=== PATIENT | male | born 1965 | race Caucasian/White ===

== ENCOUNTER 2020-03-15 10:18 | Outpatient (REF) | payer BC, SELFPAY ==
[2020-03-15 18:41] LABS: HCT 48.3 % (40.0-50.0); HGB 15.8 g/dL (13.5-17.5); MCH 30.7 pg (27.0-33.0); MCHC 32.7 % (32.0-36.0); MPV 10.6 fL (8.0-11.0); Platelet Count 249 10^3/uL (130-400); RBC 5.14 10^6/uL (4.36-5.78); RDW 12.2 % (11.8-14.1); RDW-SD 42.5 fL; WBC 6.67 10^3/uL (4.4-10.8)
[2020-03-15 19:04] LABS: ALT 53 U/L (16-63); AST 27 U/L (15-37); Albumin 4.2 g/dL (3.4-5.0); Alkaline Phosphatase 82 U/L (46-116); Anion Gap 5.2 mmol/L (3-11); BUN 22 mg/dL (7-18); Bilirubin, Total 0.4 mg/dL (0.2-1.0); CO2 28.8 mmol/L (21.0-32.0); CREATININE 1.11 mg/dL (0.70-1.30); Calcium 9.2 mg/dL (8.5-10.1); Chloride 103 mmol/L (98-107); Cholesterol 289 mg/dL (<200); Glucose 99 mg/dL (74-106); HDL Cholesterol 30 mg/dL (40-60); Potassium 4.7 mmol/L (3.5-5.1); Sodium 137 mmol/L (136-145); TSH (W/Ref FT4) 1.72 uIU/mL (0.36-3.74); Total Protein 7.1 g/dL (6.4-8.2); Triglyceride 767 mg/dL (<150)
[2020-03-15 19:18] LABS: LDL CHOLESTEROL 137 mg/dL (<100)
[2020-03-19 11:38] LABS: HIV-1/2 Ag & Ab Screen Negative (Negative)
[2020-03-19 12:31] LABS: Hepatitis C Ab w Rflx HCV PCR Negative (Negative)
== END 2020-03-15 10:38 ==
LOC: NCHCN 10:18
PROVIDERS: Visit Provider Family Medicine
DX: R63.5 Abnormal weight gain (principal); F10.10 Alcohol abuse, uncomplicated; E78.5 Hyperlipidemia, unspecified; E66.9 Obesity, unspecified; Z11.4 Encounter for screening for human immunodeficiency virus [HIV]; Z11.59 Encounter for screening for other viral diseases
CPT/HCPCS: 80053; 80061; 83721; 85027; 86803; 87389; 83036; 84443

== ENCOUNTER 2020-05-29 07:32 | Outpatient (CLI) | payer BC, SELFPAY ==
[2020-05-30 12:23] LABS: SARS-CoV-2 RNA Not Detected (NotDetected); SARS-CoV-2 RNA Source Nasal/Nares
== END 2020-05-29 07:52 ==
PROVIDERS: PCP Family Medicine; Visit Provider Surgery
DX: Z11.59 Encounter for screening for other viral diseases (principal); Z01.818 Encounter for other preprocedural examination
CPT/HCPCS: U0003

== ENCOUNTER 2020-06-01 07:40 | Day surgery (SDC) | payer BC, SELFPAY ==
[2020-06-01 07:34] VITALS: BP 128/76; PULSE 71; RESP 18; TEMP 35.9; O2SAT 96
[2020-06-01] MEDS: Lactated Ringers 1,000 ML 80 ML IV (08:08)
--- NOTE | 2020-06-01 08:21 | W.PM.DSUDISC ---
Discharge Plan Disposition Patient Disposition: HOME Condition: Good Discharge Details Reason For Visit: Colonoscopy Attending Provider: Maty He Primary Care Provider: Deanna Hernandez Home Meds and New Rx's Prescriptions: Continued naltrexone 50 mg tablet 50 mg PO DAILY RF: 0 hydroxyzine HCl 10 mg tablet 10 mg PO TID PRNRF: 0 Chantix 1 mg tablet 1 mg PO BID RF: 0 escitalopram oxalate 10 mg tablet 10 mg PO DAILY RF: 0 Discharge Instructions Additional Instructions: Findings: Three small polyps were removed. My office will contact you with biopsy results. Follow up: A follow up colonoscopy may be needed in 3-5 years depending on biopsy results. Please call if you develop: fevers >101.5 Nausea or Vomiting Abdominal pain that is not transient DAY SURGERY UNIT POST COLONOSCOPY INSTRUCTIONS 1. Because there will be medication in your system for the next 24 hours, you may feel a little sleepy. Your coordination will be affected. Therefore: a. Do not drive or operate dangerous equipment for 24 hours. b. Do not drink alcohol beverages for 24 hours (not even beer). c. Plan to go home and rest for the day. 2. Generally there are no restrictions on your activity after a day or so has gone by, but you may feel a bit fatigued for a few days. 3 After you arrive home you may have a light meal and return to a normal diet as you can tolerate it without feeling sick to your stomach. 4. After surgery, you may feel pain or discomfort. This should be only transient, but if it persists please contact your doctor. 5. If there are any questions regarding the findings of your procedure, please feel free to contact your doctor. 6. If you are unable to contact your doctor with a problem, contact the hospital at [phone]. 7. Continue all your regular medications unless directed otherwise. I understand the above instructions and have no questions. Signature of Patient or Responsible Adult Escort Date/Time Name of Responsible Adult Escort Signature of Nurse Date/Time Activity:: Activity as Tolerated Diet:: As Tolerated Discharge Orders Discharge Orders: Discharge Order (Routine); Ordered 06/01/20 Ordered By: Maty He DS: Diagnosis Discharge Diagnosis (1) Colon polyps: Status: Acute
--- NOTE | 2020-06-01 08:22 | W.COLOREPORT ---
Date of service: 06/01/20 Time of Service: 09:49 Colonoscopy Report Date of procedure: 06/01/20 Pre-op diagnosis general: Screening Post-op diagnosis procedure note: other (Colon polyps) Procedure: Colonoscopy with cold forceps polypectomy and snare polypectomy Surgeon: Maty He Anesthesia proc note operative: MAC Indications: This 54 year old man presents for his first screening colonoscopy. He has no symptoms or FH colon cancer. Procedure Description: The patient was placed in the left [place] position. Propofol was titrated to sedation. Digital rectal examination revealed no abnormalities. The scope was advanced to the cecum without difficulty. The ileocecal valve and appendiceal orifice were clearly identified. The prep was good. The scope was slowly withdrawn over the course of greater than 6 minutes with no abnormalities seen in the ascending or transverse colon. In the descending colon a flat less than 1cm polyp was removed with the cold forceps. At 30cm in the sigmoid colon two polyps near each other were removed with the snare. The larger was retrieved for pathology. No abnormalities were seen in the rectum including on retroflexed view. The patient tolerated the procedure well and was stable to recovery. Plan for colonoscopy in 3-5 years depending on polyp pathology.
--- NOTE | 2020-06-01 09:25 | BOWEL_PTH ---
PATIENT: Julio César Arnold LOC: [facility] U#:[id number] AGE/SX: 54/M ROOM: RE06/01/[address]: Maty He MD : 1965 BED: DIS: 06/01/2020 SPEC #: [id number] RECD: 06/01/20 12:50 STATUS: MAXINE RE #: [id number] [place]: 06/01/20 09:[address]: Maty He DEPT: Surgical Specimen RECD BY: Brigitte Flores ENTERED: 06/01/20 12:51 SP TYPE: Bowel OTHR DR: Deanna Hernandez Tissues: 1 - BIOPSY BOWEL 2 - BIOPSY BOWEL Procedures: GROSS AND MICRO LEVEL 4 Comments: [id number] ([id number] [facility] [place]#)
[2020-06-01 10:25] VITALS: BP 129/60; PULSE 68; RESP 18; TEMP 36.7; O2SAT 97
== END 2020-06-01 10:59 | disposition home or self-care (01) ==
PROVIDERS: PCP Family Medicine; Visit Provider Surgery
PROC: 0DJD8ZZ Inspection of Lower Intestinal Tract, Via Natural or Artificial Opening Endoscopic (ICD-10-PCS; CPT 45378; principal; 2020-06-01 09:00)
DX: Z12.11 Encounter for screening for malignant neoplasm of colon (principal); K63.5 Polyp of colon; F10.10 Alcohol abuse, uncomplicated; F41.9 Anxiety disorder, unspecified; E66.9 Obesity, unspecified; D12.4 Benign neoplasm of descending colon
CPT/HCPCS: 45385; 88305; J2001; J2704

== ENCOUNTER 2020-07-18 19:34 | Outpatient (REF) | payer BC, SELFPAY ==
[2020-07-18 20:59] LABS: ALT 46 U/L (16-63); Calculated LDL 74 mg/dL (<100); Cholesterol 166 mg/dL (<200); HDL Cholesterol 47 mg/dL (40-60); Triglyceride 227 mg/dL (<150)
[2020-07-18 21:24] LABS: Hemoglobin A1C 6.1 % (<5.7)
== END 2020-07-18 19:54 ==
LOC: NCHCN 19:34
PROVIDERS: PCP Family Medicine; Visit Provider Family Medicine
DX: E78.5 Hyperlipidemia, unspecified (principal); R73.03 Prediabetes; F10.10 Alcohol abuse, uncomplicated
CPT/HCPCS: 80061; 83036; 84460

== ENCOUNTER 2021-01-25 17:55 | Outpatient (REF) | payer BC, SELFPAY ==
[2021-01-25 19:52] LABS: ESR 11 mm/hr (0-20)
[2021-01-25 20:20] LABS: Hemoglobin A1C 6.4 % (<5.7)
[2021-01-25 20:34] LABS: ALT 49 U/L (16-63); Cholesterol 178 mg/dL (<200); HDL Cholesterol 48 mg/dL (40-60); Triglyceride 461 mg/dL (<150)
[2021-01-25 20:48] LABS: LDL CHOLESTEROL 77 mg/dL (<100)
[2021-01-25 20:56] LABS: C-Reactive Protein 0.13 mg/dL (0.0-0.3)
[2021-01-28 09:22] LABS: Cyclic Citrullinated Peptide <2.5 U/mL (<5.0)
[2021-01-28 15:32] LABS: ANA Interpretation Negative (Negative)
== END 2021-01-25 17:56 | disposition home or self-care (01) ==
LOC: NCHCN 17:55
PROVIDERS: PCP Family Medicine; Visit Provider Family Medicine
DX: M25.50 Pain in unspecified joint (principal); E78.5 Hyperlipidemia, unspecified; R73.03 Prediabetes; F10.10 Alcohol abuse, uncomplicated
CPT/HCPCS: 80061; 83721; 85652; 86200; 83036; 84460; 86038; 86140